=== PATIENT | female | born 1955 | race African-American/Black ===

== ENCOUNTER → 2017-04-03 | Outpatient (CLI) | payer OTHER | END | disposition home or self-care (01) | LOC: CT 08:54 | PROC: BW24ZZZ Computerized Tomography (CT Scan) of Chest and Abdomen (ICD-10-PCS; principal; 2017-04-03) | DX: R05 Cough (principal); Z72.0 Tobacco use; J30.9 Allergic rhinitis, unspecified ==

== ENCOUNTER → 2017-07-24 | Outpatient (CLI) | payer OTHER ==
[2017-07-24 09:34] LABS: PLATELET COUNT 366 x10^3mcL (130-400)
[2017-07-24 09:58] LABS: ALBUMIN 3.8 g/dL (3.4-5.0); ALKALINE PHOSPHATASE 88 U/L (46-116); ALT/SGPT 41 U/L (14-59); AST/SGOT 40 U/L (15-37); BILIRUBIN DIRECT 0.14 mg/dL (0.0-0.2); CALCIUM 9.1 mg/dL (8.5-10.1); CARBON DIOXIDE 30.6 mmol/L (21-32); CHLORIDE SERUM 99 mmol/L (98-107); CHOLESTEROL 185 mg/dL (<200); CREATININE SERUM 0.8 mg/dL (0.6-1.0); GFR1 > 60 mL/min; GLUCOSE SERUM 104 mg/dL (74-106); POTASSIUM SERUM 3.1 mmol/L (3.5-5.1); SODIUM SERUM 134 mmol/L (136-145); TOTAL PROTEIN, SERUM 7.5 g/dL (6.4-8.2); TRIGLYCERIDES 34 mg/dL (<150)
[2017-07-24 10:13] LABS: HDL CHOLESTEROL 91 mg/dL (40-60); T4(THYROXINE) 15.4 ug/dL (4.7-13.3)
[2017-07-24 10:19] LABS: RED CELL DISTRIBUTION WIDTH 16.1 % (11.5-14.5)
[2017-07-24 11:31] LABS: BAND NEUTROPHIL 0 % (0-10); BASOPHIL 0 % (0-2); MONOCYTE 13 % (0-7); SEGMENTED NEUTROPHILS 67 % (37-75)
[2017-07-24 11:32] LABS: rbc morphology (normal/abnorm) ABNORMAL (NORMAL)
[2017-07-24 11:33] LABS: target cell (codocyte) 1+
== END | disposition home or self-care (01) ==
LOC: LB 08:34
PROVIDERS: Internal Medicine
DX: Z00.00 Encounter for general adult medical examination without abnormal findings (principal)
CPT/HCPCS: 87491; 87591

== ENCOUNTER → 2017-07-30 | Outpatient (CLI) | payer OTHER | END | disposition home or self-care (01) | LOC: LB 09:01 | DX: R79.89 Other specified abnormal findings of blood chemistry (principal) ==

== ENCOUNTER → 2017-11-03 | Outpatient (CLI) | payer OTHER ==
[2017-11-04 08:47] LABS: PLATELET COUNT 364 x10^3mcL (130-400)
[2017-11-04 08:59] LABS: RED CELL DISTRIBUTION WIDTH 17.9 % (11.5-14.5)
[2017-11-04 09:02] LABS: ALBUMIN 3.5 g/dL (3.4-5.0); ALKALINE PHOSPHATASE 86 U/L (46-116); ALT/SGPT 21 U/L (14-59); AST/SGOT 23 U/L (15-37); BILIRUBIN TOTAL 0.32 mg/dL (0.20-1.00); CALCIUM 9.5 mg/dL (8.5-10.1); CARBON DIOXIDE 30.3 mmol/L (21-32); CHLORIDE SERUM 103 mmol/L (98-107); CREATININE SERUM 0.9 mg/dL (0.6-1.0); GFR1 > 60 mL/min; GLUCOSE SERUM 62 mg/dL (74-106); POTASSIUM SERUM 3.5 mmol/L (3.5-5.1); SODIUM SERUM 142 mmol/L (136-145); TOTAL PROTEIN, SERUM 7.2 g/dL (6.4-8.2)
[2017-11-04 11:03] LABS: BAND NEUTROPHIL 0 % (0-10); BASOPHIL 0 % (0-2); MONOCYTE 6 % (0-7); SEGMENTED NEUTROPHILS 61 % (37-75); rbc morphology (normal/abnorm) ABNORMAL (NORMAL); schistocyte (helmet cell) 1+; target cell (codocyte) 1+; tear drop cell (dacryocyte) 1+
[2017-11-04 11:04] LABS: PLATELET MORPHOLOGY GIANT PLATELET SEEN
== END | disposition home or self-care (01) ==
LOC: RD 11:02
PROVIDERS: Internal Medicine
DX: Z01.818 Encounter for other preprocedural examination (principal)

== ENCOUNTER 2017-11-13 05:57 | Day surgery (SDC) | payer OTHER ==
[~2017-11-13] VITALS: Ht 172.7 cm; Wt 68.0 kg
[2017-11-13 06:21] VITALS: BP 117/78
[2017-11-13 06:52] LABS: CARBON DIOXIDE 28.5 mmol/L (21-32); CHLORIDE SERUM 103 mmol/L (98-107); CREATININE SERUM 0.8 mg/dL (0.6-1.0); GFR1 > 60 mL/min; GLUCOSE SERUM 105 mg/dL (74-106); SODIUM SERUM 137 mmol/L (136-145)
[2017-11-13 06:55] LABS: POTASSIUM SERUM 2.8 mmol/L (3.5-5.1)
[2017-11-13 07:23] LABS: BASOPHIL % 0.1 % (0-2); PLATELET COUNT 318 x10^3mcL (130-400)
[2017-11-13 07:28] LABS: RED CELL DISTRIBUTION WIDTH 18.2 % (11.5-14.5)
[2017-11-13 07:32] LABS: rbc morphology (normal/abnorm) ABNORMAL (NORMAL)
[2017-11-13 10:07] VITALS: BP 133/72
== END 2017-11-13 09:50 | disposition home or self-care (01) ==
LOC: DS 05:57 → OR 07:30 → DS 09:50
PROVIDERS: Ophthalmology
PROC: 08RJ3JZ Replacement of Right Lens with Synthetic Substitute, Percutaneous Approach (ICD-10-PCS; principal; 2017-11-13 07:30)
DX: H25.091 Other age-related incipient cataract, right eye (principal); I10 Essential (primary) hypertension; K21.9 Gastro-esophageal reflux disease without esophagitis
CPT/HCPCS: C1780; J2001; J2250; J3010; J7120

== ENCOUNTER → 2017-12-11 | Outpatient (CLI) | payer OTHER ==
[2017-12-11 09:51] LABS: ALBUMIN 3.6 g/dL (3.4-5.0); ALKALINE PHOSPHATASE 89 U/L (46-116); ALT/SGPT 36 U/L (14-59); AST/SGOT 24 U/L (15-37); BILIRUBIN TOTAL 0.3 mg/dL (0.20-1.00); CALCIUM 9.4 mg/dL (8.5-10.1); CARBON DIOXIDE 31.4 mmol/L (21-32); CHLORIDE SERUM 102 mmol/L (98-107); CREATININE SERUM 0.8 mg/dL (0.6-1.0); GFR1 > 60 mL/min; GLUCOSE SERUM 105 mg/dL (74-106); POTASSIUM SERUM 3.7 mmol/L (3.5-5.1); SODIUM SERUM 135 mmol/L (136-145); TOTAL PROTEIN, SERUM 7.6 g/dL (6.4-8.2)
[2017-12-11 09:55] LABS: PLATELET COUNT 371 x10^3mcL (130-400)
[2017-12-11 10:06] LABS: RED CELL DISTRIBUTION WIDTH 17.9 % (11.5-14.5)
[2017-12-11 10:39] LABS: ATYPICAL LYMPH 4 %; BAND NEUTROPHIL 0 % (0-10); BASOPHIL 0 % (0-2); MONOCYTE 11 % (0-7); SEGMENTED NEUTROPHILS 78 % (37-75)
[2017-12-11 10:40] LABS: PLATELET MORPHOLOGY PLATELETS NORMAL; rbc morphology (normal/abnorm) ABNORMAL (NORMAL); target cell (codocyte) 2+
== END | disposition home or self-care (01) ==
LOC: LB 08:39
PROVIDERS: Internal Medicine
DX: Z01.818 Encounter for other preprocedural examination (principal)

== ENCOUNTER → 2017-12-18 | Day surgery (SDC) | payer OTHER ==
[~2017-12-18] VITALS: Ht 172.7 cm; Wt 65.8 kg
[2017-12-18 10:48] VITALS: BP 111/68
[2017-12-18 14:02] VITALS: BP 142/75
== END | disposition home or self-care (01) ==
LOC: DS 09:46 → OR 12:00 → DS 12:00
PROVIDERS: Ophthalmology
PROC: 08RK3JZ Replacement of Left Lens with Synthetic Substitute, Percutaneous Approach (ICD-10-PCS; principal; 2017-12-18 12:00)
DX: H25.12 Age-related nuclear cataract, left eye (principal); I10 Essential (primary) hypertension; K21.9 Gastro-esophageal reflux disease without esophagitis
CPT/HCPCS: C1780; J2001; J2250; J2310; J3010; J3490; J7040

== ENCOUNTER 2018-03-09 08:37 | Emergency (ER) | payer OTHER ==
[~2018-03-09] VITALS: Ht 172.7 cm; Wt 67.1 kg
[2018-03-09 08:55] VITALS: BP 117/80; Ht 172.7 cm; Wt 67.1 kg
[2018-03-09 10:41] LABS: PLATELET COUNT 276 x10^3mcL (130-400)
[2018-03-09 10:45] LABS: CALCIUM 9.3 mg/dL (8.5-10.1); CARBON DIOXIDE 30.2 mmol/L (21-32); CHLORIDE SERUM 101 mmol/L (98-107); CREATININE SERUM 0.9 mg/dL (0.6-1.0); GFR1 > 60 mL/min; GLUCOSE SERUM 89 mg/dL (74-106); POTASSIUM SERUM 3.7 mmol/L (3.5-5.1); SODIUM SERUM 139 mmol/L (136-145)
[2018-03-09 10:49] LABS: RED CELL DISTRIBUTION WIDTH 19.1 % (11.5-14.5)
[2018-03-09 10:50] LABS: ALBUMIN 3.7 g/dL (3.4-5.0); ALKALINE PHOSPHATASE 74 U/L (46-116); ALT/SGPT 29 U/L (14-59); AST/SGOT 22 U/L (15-37); BILIRUBIN TOTAL 0.4 mg/dL (0.20-1.00); TOTAL PROTEIN, SERUM 7.1 g/dL (6.4-8.2)
[2018-03-09 11:49] LABS: ATYPICAL LYMPH 2 %; BAND NEUTROPHIL 0 % (0-10); BASOPHIL 0 % (0-2); MONOCYTE 10 % (0-7); SEGMENTED NEUTROPHILS 62 % (37-75)
[2018-03-09 11:50] LABS: PLATELET MORPHOLOGY PLATELETS DECREASED; rbc morphology (normal/abnorm) ABNORMAL (NORMAL); target cell (codocyte) 2+
== END 2018-03-09 13:17 | disposition home or self-care (01) ==
LOC: ED 08:37
PROVIDERS: Emergency Medicine
DX: M54.6 Pain in thoracic spine (principal); M62.830 Muscle spasm of back; F17.200 Nicotine dependence, unspecified, uncomplicated; Z90.710 Acquired absence of both cervix and uterus
CPT/HCPCS: 99406; J1885; J2800; J3490; J7030

== ENCOUNTER 2018-08-13 12:51 | Emergency (ER) | payer OTHER ==
[~2018-08-13] VITALS: Ht 172.7 cm; Wt 68.5 kg
[2018-08-13 12:54] VITALS: BP 119/76; Ht 172.7 cm; Wt 68.5 kg
== END 2018-08-13 15:14 | disposition home or self-care (01) ==
LOC: ED 12:51
DX: M54.5 Low back pain (principal); M54.6 Pain in thoracic spine; F17.210 Nicotine dependence, cigarettes, uncomplicated; Z90.710 Acquired absence of both cervix and uterus; Z98.890 Other specified postprocedural states
CPT/HCPCS: J1885; J2930

== ENCOUNTER → 2019-02-22 | Outpatient (CLI) | payer OTHER ==
[2019-02-22 09:32] LABS: PLATELET COUNT 350 x10^3mcL (130-400); RED CELL DISTRIBUTION WIDTH 17.9 % (11.5-14.5)
[2019-02-22 09:58] LABS: ALBUMIN 3.8 g/dL (3.4-5.0); BILIRUBIN DIRECT 0.1 mg/dL (0.0-0.2); BILIRUBIN TOTAL 0.32 mg/dL (0.20-1.00); CARBON DIOXIDE 31.8 mmol/L (21-32); POTASSIUM SERUM 3.6 mmol/L (3.5-5.1); TOTAL PROTEIN, SERUM 7.7 g/dL (6.4-8.2)
[2019-02-22 09:59] LABS: CHOLESTEROL/HDL RATIO 2.1
[2019-02-22 11:38] LABS: ATYPICAL LYMPH 2 %; BAND NEUTROPHIL 0 % (0-10); BASOPHIL 0 % (0-2); MONOCYTE 12 % (0-7); SEGMENTED NEUTROPHILS 68 % (37-75)
[2019-02-22 11:39] LABS: PLATELET MORPHOLOGY PLATELETS NORMAL; rbc morphology (normal/abnorm) ABNORMAL (NORMAL)
[2019-02-22 11:40] LABS: target cell (codocyte) 2+
== END | disposition home or self-care (01) ==
LOC: LB 08:49
PROVIDERS: Internal Medicine
DX: Z00.00 Encounter for general adult medical examination without abnormal findings (principal)
CPT/HCPCS: 77067

== ENCOUNTER → 2019-07-27 | Outpatient (CLI) | payer OTHER | END | disposition home or self-care (01) | LOC: CT 08:48 | PROC: BW28ZZZ Computerized Tomography (CT Scan) of Head (ICD-10-PCS; principal; 2019-07-27) | DX: R51 Headache (principal) ==

== ENCOUNTER → 2019-08-06 | Outpatient (CLI) | payer OTHER ==
[2019-08-06 11:31] LABS: ALBUMIN 3.9 g/dL (3.4-5.0); BILIRUBIN TOTAL 0.4 mg/dL (0.20-1.00); CALCIUM 9.5 mg/dL (8.5-10.1); POTASSIUM SERUM 3.6 mmol/L (3.5-5.1); TOTAL PROTEIN, SERUM 7.3 g/dL (6.4-8.2)
[2019-08-06 11:43] LABS: PLATELET COUNT 360 x10^3mcL (130-400)
[2019-08-06 12:01] LABS: RED CELL DISTRIBUTION WIDTH 16.2 % (11.5-14.5)
[2019-08-06 13:30] LABS: ATYPICAL LYMPH 3 %; BAND NEUTROPHIL 2 % (0-10); MONOCYTE 17 % (0-7); SEGMENTED NEUTROPHILS 48 % (37-75)
[2019-08-06 13:31] LABS: PLATELET MORPHOLOGY LARGE PLATELET SEEN; rbc morphology (normal/abnorm) ABNORMAL (NORMAL)
== END | disposition home or self-care (01) ==
LOC: LB 10:50
PROVIDERS: Internal Medicine
DX: Z00.00 Encounter for general adult medical examination without abnormal findings (principal)

== ENCOUNTER → 2020-01-13 | Outpatient (CLI) | payer OTHER ==
[2020-01-13 11:12] LABS: ALBUMIN 4.1 g/dL (3.4-5.0); ALKALINE PHOSPHATASE 72 U/L (46-116); ALT/SGPT 35 U/L (14-59); AST/SGOT 24 U/L (15-37); BASOPHIL % 0.9 % (0-2); BILIRUBIN DIRECT 0.15 mg/dL (0.0-0.2); BILIRUBIN TOTAL 0.48 mg/dL (0.20-1.00); CALCIUM 9.5 mg/dL (8.5-10.1); CARBON DIOXIDE 30.7 mmol/L (21-32); CHLORIDE SERUM 99 mmol/L (98-107); CREATININE SERUM 0.9 mg/dL (0.6-1.0); FREE T4 1.15 ng/dL (0.76-1.46); GFR1 > 60 mL/min; GLUCOSE SERUM 112 mg/dL (74-106); PLATELET COUNT 289 x10^3mcL (130-400); POTASSIUM SERUM 3.4 mmol/L (3.5-5.1); SODIUM SERUM 135 mmol/L (136-145); TOTAL PROTEIN, SERUM 7.5 g/dL (6.4-8.2); TRIGLYCERIDES 79 mg/dL (<150)
[2020-01-13 11:13] LABS: CHOLESTEROL 226 mg/dL (<200); CHOLESTEROL/HDL RATIO 2.7; HDL CHOLESTEROL 85 mg/dL (40-60)
[2020-01-13 11:27] LABS: RED CELL DISTRIBUTION WIDTH 15.7 % (11.5-14.5)
== END | disposition home or self-care (01) ==
LOC: LB 10:22
DX: E03.9 Hypothyroidism, unspecified (principal)
CPT/HCPCS: 84439

== ENCOUNTER 2020-02-24 08:11 | Day surgery (SDC) | payer OTHER ==
[~2020-02-24] VITALS: Ht 172.7 cm; Wt 67.1 kg
[2020-02-24 08:34] VITALS: BP 110/65
[2020-02-24 13:42] VITALS: BP 112/73
== END 2020-02-24 13:30 | disposition home or self-care (01) ==
LOC: DS 08:11 → OR 10:00 → DS 13:30
PROVIDERS: ATTEND Internal Medicine Gastroenterology
DX: R19.5 Other fecal abnormalities (principal); K57.30 Diverticulosis of large intestine without perforation or abscess without bleeding; K21.9 Gastro-esophageal reflux disease without esophagitis; I10 Essential (primary) hypertension; Z90.710 Acquired absence of both cervix and uterus; Z87.11 Personal history of peptic ulcer disease
CPT/HCPCS: 43235; 45378; J1200; J1610; J2250; J2310; J3010; J3490

== ENCOUNTER → 2020-04-28 | Outpatient (CLI) | payer OTHER ==
[2020-04-28 10:55] LABS: BASOPHIL % 0.8 % (0.2-1.3); PLATELET COUNT 387 x10^3mcL (179-408); RED CELL DISTRIBUTION WIDTH 14.2 % (12.3-17.7)
[2020-04-28 11:45] LABS: ALBUMIN 3.7 g/dL (3.4-5.0); ALKALINE PHOSPHATASE 81 U/L (46-116); ALT/SGPT 41 U/L (14-59); AST/SGOT 25 U/L (15-37); BILIRUBIN DIRECT 0.09 mg/dL (0.0-0.2); BILIRUBIN TOTAL 0.27 mg/dL (0.20-1.00); CALCIUM 9.3 mg/dL (8.5-10.1); CARBON DIOXIDE 30.6 mmol/L (21-32); CHLORIDE SERUM 100 mmol/L (98-107); CREATININE SERUM 0.8 mg/dL (0.6-1.0); GFR1 > 60 mL/min; GLUCOSE SERUM 88 mg/dL (74-106); POTASSIUM SERUM 3.4 mmol/L (3.5-5.1); SODIUM SERUM 135 mmol/L (136-145); TOTAL PROTEIN, SERUM 7.3 g/dL (6.4-8.2); TRIGLYCERIDES 78 mg/dL (<150)
[2020-04-28 11:58] LABS: CHOLESTEROL 201 mg/dL (<200); CHOLESTEROL/HDL RATIO 1.9; HDL CHOLESTEROL 104 mg/dL (40-60)
[2020-04-29 09:05] LABS: microalbumin:creatinine ratio < 2 (0-29)
== END | disposition home or self-care (01) ==
LOC: LB 09:41
PROVIDERS: ATTEND Internal Medicine
DX: Z00.00 Encounter for general adult medical examination without abnormal findings (principal)

== ENCOUNTER → 2020-05-14 | Outpatient (CLI) | payer OTHER | END | disposition home or self-care (01) | LOC: RD 17:41 | DX: J44.9 Chronic obstructive pulmonary disease, unspecified (principal) ==

== ENCOUNTER → 2020-06-04 | Outpatient (CLI) | payer OTHER | END | disposition home or self-care (01) | LOC: RD 12:08 | PROVIDERS: ATTEND Internal Medicine | DX: J18.9 Pneumonia, unspecified organism (principal) ==